=== PATIENT | male | born 1970 | race Caucasian/White ===

== ENCOUNTER 2018-09-27 05:54 | Inpatient (IN) | payer BC ==
[2018-09-24 16:24] VITALS: BMI 35.1
[2018-09-27] VITALS (28 sets, daily range): BP systolic 112–140; BP diastolic 71–90; PULSE 74–103; RESP 14–20; Ht 190.5 cm; Wt 127.2 kg
[~2018-09-27] VITALS: Ht 190.5 cm; Wt 127.2 kg
[2018-09-27] MEDS ORDERED: BUPIVACAINE 0.5%/EPI (SDV) 30 ML INJ ONE (06:49)
[2018-09-27] MEDS ORDERED: THROMBIN (BOVINE) 5,000 UNIT VIAL TP ONE (06:49)
[2018-09-27] MEDS ORDERED: SURGIFOAM POWDER 1 GM KIT ONE (06:50)
[2018-09-27] MEDS ORDERED: POLYMYXIN/BACITRACIN 1L IRRIG ONE (06:54)
[2018-09-27] MEDS ORDERED: CEFAZOLIN 1 GM INJ ONE ×2 (07:00→07:40)
[2018-09-27] MEDS ORDERED: PROPOFOL 200 MG INJ ONE (07:00)
[2018-09-27] MEDS ORDERED: SEVOFLURANE 15 MIN ONE (07:00)
--- NOTE | 2018-09-27 07:34 | HPN ---
Date/Time of Note Date/Time of Note DATE: 09/27/18 TIME: 07:33 Interval H&P Admission Note Pt. seen H&P reviewed: No system changes MARI JONES MD Sep 27, 2018 07:34
--- NOTE | 2018-09-27 07:34 | PREAC ---
Date/Time of Note Date/Time of Note DATE: 09/27/18 TIME: 07:30 Anesthesia Eval and Record Evaluation Time Pre-Procedure Interview DATE: 09/27/18 TIME: 07:30 Age 48 Sex male NPO: 8 hrs Preoperative diagnosis Cervcical Radiculopathy Planned procedure Cervical C5-6 discectomy and fusion. Past Medical History Past Medical History: Includes Cardio: HTN, Dyslipidemia, CAD, PTCA/Stent (X3 stents), Arrythmia (history of ST), CHF Pulm: Sleep Apnea, Home CPAP GI: Obesity Surgery & Anesthesia Issues No known issue Meds Anticoagulation: No Beta Gopi within 24 hr: No Reason Beta Gopi not given: Pt. not on B-Gopi Meds reviewed: Yes Allergies Coded Allergies: No Known Allergy (Unverified , 09/24/18) Allergies Reviewed: Yes Labs/Studies Labs Reviewed: Reviewed by anesthesiologist test: N/A Studies: ECG (NSR, septal infarct), CXR (n/a), 2D Echo (EF 60%old infarct, no ischemnia, mild LVH, no valvulopathy) Pre-procedure Exam Airway: Adequate mouth opening, Adequate thyromental dist Mallampati: Mallampati III Teeth: Normal Lung: Normal Heart: Normal ASA Physical Status ASA physical status: 3 Emergency: None Planned Anesthetic General/MAC: ETT Planned Pain Management Parenteral pain med Pre-operative Attestations Prior to commencing anesthesia and surgery, the patient was re-evaluated, there was verification of: *The patient's identity *The results of appropriate recent lab work and preoperative vital signs *The above evaluation not changing prior to induction *Anesthetic plan, risk benefits, alternative and complications discussed with patient/family; questions answered; patient/family understands, accepts and wishes to proceed. WANDA VU MD Sep 27, 2018 07:34
[2018-09-27] MEDS ORDERED: MIDAZOLAM 1 MG/ML 2 ML INJ ONE (07:40)
[2018-09-27] MEDS ORDERED: PROPOFOL 20 ML ONE (07:40)
[2018-09-27] MEDS ORDERED: ROCURONIUM 50 MG INJ ONE ×2 (07:40→12:59)
[2018-09-27] MEDS ORDERED: ATOR-2 PO (07:47)
[2018-09-27] MEDS ORDERED: CARV12.579 PO (07:48)
[2018-09-27] MEDS ORDERED: ISOS30TA67 PO (07:48)
[2018-09-27] MEDS ORDERED: LISI10TA2 PO (07:49)
[2018-09-27] MEDS ORDERED: CLOP75TA27 PO (07:49)
[2018-09-27] MEDS ORDERED: PHENYLephrine 10 MG INJ ONE (07:52)
[2018-09-27] MEDS ORDERED: EPHEDrine 25 MG/5 ML SYG ONE (07:52)
[2018-09-27] MEDS ORDERED: ONDANSETRON 4 MG INJ ONE ×2 (08:29)
[2018-09-27] MEDS ORDERED: METOCLOPRAMIDE 10 MG INJ ONE (08:29)
[2018-09-27] MEDS ORDERED: DEXAMETHASONE 4 MG/ML 5 ML INJ ONE (08:29)
[2018-09-27] MEDS ORDERED: SUGAMMADEX SODIUM 200 MG/2 ML VIAL IV ONE (11:00)
[2018-09-27] MEDS ORDERED: LABETALOL HCL 20MG INJ ONE (11:02)
--- NOTE | 2018-09-27 11:14 | OPR ---
Date/Time of Note Date/Time of Note DATE: 09/27/18 TIME: 11:11 Operative Report Free Text/Dictation DATE OF OPERATION: 09/27/2018 PREOPERATIVE DIAGNOSES: 1. 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 Morbid Obesity BMI: 35.1 kg/m2 POSTOPERATIVE DIAGNOSES: 1. 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 Morbid Obesity BMI: 35.1 kg/m2 OPERATION PERFORMED: 1. Anterior cervical C5-6 diskectomy. 2. Anterior cervical disc replacement, C5-6 3. Use of Operative microscope. 4. Interpretation of Neuromonitoring SURGEON: Mari Jones MD STOCK MOVER: Francisco Terrazas MD INDICATIONS: Mr. Wilson is a 48-year-old gentleman who presents with a year history of right upper extremity pain and weakness refractory to conservative management associated with extension and rotation as well as axial loading. Preoperative imaging studies demonstrated a right paracentral disk herniation at the C5-6 level cord compression and C6 nerve root compression. After having failed all attempts at conservative management, he understood the risks included, but were not limited to, infection, neurologic injury, blood loss, dural tear, persistence of preoperative symptoms and a potential need for further operative procedures and elected to proceed with surgery. PROCEDURE IN DETAIL: The patient was brought in the operating room. General anesthesia was obtained. Preoperative antibiotics were given. He was carefully positioned supine on the radiolucent table. The arms were padded and tucked at the sides. The neck was sterilely prepped and draped in the usual fashion. A standard left-sided skin incision was made in a prominent anterior skin fold. This was continued down through subcutaneous tissue to the platysma fascia. Full-thickness skin flaps were developed. The platysma was split in line with the direction of its fibers. The dissection proceeded through the deep cervical fascia at the interval between the esophagus and spine. The prevertebral fascia was carefully incised, cleared off at the anterior aspect of the C5-6 disk space. The anterior longitudinal ligament was carefully isolated as was the longus coli bilaterally. A [place] retraction cannula was placed into the C5 vertebral body, and an intraoperative radiograph was obtained to confirm the location of the midline along with the operative level. Once this was confirmed, a 2nd [place] pin was placed in the C6 vertebral body, and the longus colli was mobilized bilaterally using bipolar cautery and an elevator. A deep self- retaining retractor was placed underneath the longus colli bilaterally and then distraction was applied across the interspace. The operative microscope was at this point brought in. The osteophyte projecting over the anterior aspect of the C5-6 disk space was at this point resected with a spinal rongeur, and then the anterior portion of the disk was incised with a #15 blade. The disk was excised in its entirety using a series of pituitary rongeurs and angled curettes back to the posterior longitudinal ligament. The uncovertebral osteophyte was resected along its medial 3rd to provide a platform for the disk replacement and also to allow for foraminal decompression. The posterior osteophytes projecting off the back of the C5 and C6 vertebral bodies were slightly burred down, and then the posterior longitudinal ligament was resected , 1st centrally and then in either direction. A foraminotomy was performed bilaterally until a probe could be ea sily passed along the pathway of the C6 root. Hemostasis was obtained at this point, and then a series of trial sizers were used to select an implant 17 mm wide by 5 mm tall x 15 mm in an anterior-posterior depth. Intraoperative radiographs demonstrated good alignment of the trial, and then the final implant was selected and then inserted into the disk space under technical photographer's in structions using the appropriate instrumentation. Once this was positioned appropriately and extended to the back of the C5 and C6 vertebral bodies, the operative site was washed out extensively with sterile normal saline. There was no significant bleeding. The Memo pins were removed, and the sites were blocked off with bone wax. The platysma fascia was then closed with 3-0 Vicryl suture in a interrupted fashion over a medium Hemovac, followed by 4-0 Monocryl suture in a running subcuticular fashion. Dermabond was placed, followed by a sterile dressing. The patient was extubated and transferred out to the postanesthesia care unit in a soft collar in good condition. There were no complications. Given the patient morbid BMI 32.1 kg/m2 this procedure took an additional 45 minutes for exposure and implant placement. Procedure Date: Sep 27, 2018 Preoperative Diagnosis 1. 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 Morbid Obesity BMI: 35.1 kg/m2 Postoperative Diagnosis 1. 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 Morbid Obesity BMI: 35.1 kg/m2 Operation/Procedure Performed 1. Anterior cervical C5-6 diskectomy. 2. Anterior cervical disc replacement, C5-6 3. Use of Operative microscope. 4. Interpretation of Neuromonitoring Surgeon see signature line [employer] Francisco Harvey MD Anesthesia Type: general Estimated Blood Loss: 10 - 50 ml's Transfusion none Specimen C5-6 disk Grafts/Implants Mobi-C [id number] Complications none Pt Condition Post Procedure: stable Disposition: PACU Procedure Description PROCEDURE IN DETAIL: The patient was brought in the operating room. General anesthesia was obtained. Preoperative antibiotics were given. He was carefully positioned supine on the radiolucent table. The arms were padded and tucked at t he sides. The neck was sterilely prepped and draped in the usual fashion. A standard left-sided skin incision was made in a prominent anterior skin fold. This was continued down through subcutaneous tissue to the platysma fascia. Full-thickness skin flaps were developed. The platysma was split in line with the direction of its fibers. The dissection proceeded through the deep cervical fascia at the interval between the esophagus and spine. The prevertebral fascia was carefully incised, cleared off at the anterior aspect of the C5-6 disk space. The anterior longitudinal ligament was carefully isolated as was the longus coli bilaterally. A Highland retraction cannula was placed into the C5 vertebral body, and an intraoperative radiograph was obtained to confirm the location of the midline along with the operative level. Once this was confirmed, a 2nd [place] pin was placed in the C6 vertebral body, and the longus colli was mobilized bilaterally using bipolar cautery and an elevator. A deep self- retaining retractor was placed underneath the longus colli bilaterally and then distraction was applied across the interspace. The operative microscope was at this point brought in. The osteophyte projecting over the anterior aspect of the C5-6 disk space was at this point resected with a spinal rongeur, and then the anterior portion of the disk was incised with a #15 blade. The disk was excised in its entirety using a series of pituitary rongeurs and angled curettes back to the posterior longitudinal ligament. The uncovertebral osteophyte was resected along its medial 3rd to provide a platform for the disk replacement and also to allow for foraminal decompression. The posterior osteophytes projecting off the back of the C5 and C6 vertebral bodies were slightly burred down, and then the posterior longitudinal ligament was resected , 1st centrally and then in either direction. A foraminotomy was performed bilaterally until a probe could be easily passed along the pathway of the C6 root. Hemostasis was obtained at this point, and then a series of trial sizers were used to select an implant 17 mm wide by 5 mm tall x 15 mm in an anterior-posterior depth. Intraoperative radiographs demonstrated good alignment of the trial, and then the final implant was selected and then inserted into the disk space under technical photographer's instructions using the appropriate instrumentation. Once this was positioned appropriately and extended to the back of the C5 and C6 vertebral bodies, the operative site was washed out extensively with sterile normal saline. There was no significant bleeding. The [place] pins were removed, and the sites were blocked off with bone wax. The platysma fascia was then closed with 3-0 Vicryl suture in a interrupted fashion over a medium Hemovac, followed by 4-0 Monocryl suture in a running subcuticular fashion. Dermabond was placed, followed by a sterile dressing. The patient was extubated and transferred out to the postanesthesia care unit in a soft collar in good condition. There were no complications. Given the patient morbid BMI 32.1 kg/m2 this procedure took an additional 45 minutes for exposure and implant placement. MARI JONES MD Sep 27, 2018 11:14
--- NOTE | 2018-09-27 11:17 | PAC ---
Date/Time of Note Date/Time of Note DATE: 09/27/18 TIME: 11:17 Post-Anesthesia Notes Post-Anesthesia Note Last documented vital signs T: 98.0 Activity: WNL Respiratory function: WNL Cardiovascular function: WNL Mental status: Baseline Pain reasonably controlled: Yes Hydration appropriate: Yes Nausea/Vomiting absent: Yes WANDA VU MD Sep 27, 2018 11:17
[2018-09-27] MEDS ORDERED: NALOXONE (0.4 MG/ML) INJ IV PRN (11:30)
[2018-09-27] MEDS ORDERED: PROCHLORPERAZINE 10 MG TAB PO PRN (11:30)
[2018-09-27] MEDS ORDERED: ONDANSETRON 4 MG INJ IV PRN ×2 (11:30→12:30)
[2018-09-27] MEDS ORDERED: AL HYDROX/MG HYDROX/SIMETH 30 ML CUP PO PRN (11:30)
[2018-09-27] MEDS ORDERED: ACETAMINOPHEN 325 MG TAB PO PRN (11:30)
[2018-09-27] MEDS ORDERED: HYDROCODONE/APAP (5/325) TAB PO PRN ×2 (11:30)
[2018-09-27] MEDS ORDERED: NACL 0.9% 3 ML SYG IV SCH (11:30)
[2018-09-27] MEDS: HYDROmorphONE 0.2 MG/ML PCA IV SCH ×2 (11:47→21:26)
[2018-09-27] MEDS: CEFAZOLIN 1 GM/50 ML (PMX) 50 ML IVPB SCH ×2 (12:00→18:11)
[2018-09-27] MEDS ORDERED: FENTAnyl 50 MCG/ML VIAL ONE (12:10)
[2018-09-27] MEDS ORDERED: HYDROmorphONE 1 MG/5 ML IV SYRINGE IV ONE (12:11)
[2018-09-27] MEDS ORDERED: EPHEDrine SULFATE 50 MG/5 ML SYG IV PRN (12:30)
[2018-09-27] MEDS ORDERED: hydrALAzine 20 MG INJ IV PRN (12:30)
[2018-09-27] MEDS ORDERED: METOCLOPRAMIDE 10 MG INJ IV PRN (12:30)
[2018-09-27] MEDS ORDERED: MEPERIDINE 25 MG INJ IV PRN (12:30)
[2018-09-27] MEDS ORDERED: LABETALOL HCL 20MG INJ IV PRN (12:30)
[2018-09-27] MEDS ORDERED: OXYCODONE/ACETAMINOPHEN (5/325) TAB PO PRN ×2 (12:30)
[2018-09-27] MEDS ORDERED: DIPHENHYDRAMINE 50 MG INJ IV PRN (12:30)
[2018-09-27] MEDS ORDERED: FENTAnyl 50 MCG/ML VIAL IV PRN ×3 (12:30)
[2018-09-27] MEDS ORDERED: HYDROmorphONE 1 MG/5 ML IV SYRINGE IV PRN ×3 (12:30)
[2018-09-27] MEDS ORDERED: HETASTARCH 6% NACL 500 ML ONE (12:59)
[2018-09-27] MEDS: LISINOPRIL 10 MG TAB PO SCH (13:00)
--- NOTE | 2018-09-27 13:08 | CONS ---
DATE OF ADMISSION: 09/27/2018 DATE OF CONSULTATION: 09/27/2018 TYPE OF CONSULTATION: Postoperative medical. Thank you very much for allowing me to evaluate the above patient, a 48-year-old male who just underw ent cervical spine surgery. HISTORICAL EVENTS: As you well know, this patient has had a history of significant right-sided neck pain and right arm radicular symptoms and because of continued pain that did not respond to conservat cristopher therapy, he elected to proceed with surgery. Postoperatively, he is comfortable without cough, w heezing, shortness of breath, nausea, vomiting or abdominal pain. PAST MEDICAL HISTORY: Includes: 1. Known coronary artery disease having had stents placed with last stress study (nuclear in 08/2017 that revealed no ischemia). 2. Hyperlipidemia. 3. Hypertension. 4. History of sleep apnea. ALLERGIES: NONE. SOCIAL HISTORY: Does not smoke. He does drink alcohol. He is a [employer]. FAMILY HISTORY: Pancreatic cancer and skin cancer. MEDICATIONS: Include: 1. Atorvastatin 80 mg per day. 2. Coreg 12.5 b.i.d. 3. Plavix 75 mg per day. 4. Lisinopril 10 mg per day. 5. Isosorbide 30 mg per day. 6. Nitroglycerin p.r.n. 7. Aspirin. PHYSICAL EXAMINATION: GENERAL: Comfortable appearing male in no acute distress. VITAL SIGNS: BP 118/76, pulse 72, respirations were 18. He was afebrile. HEENT: Eyes: Extraocular muscles were full. Nose, mouth and throat are normal. NECK: No thyroid enlargement. No JVD. LUNGS: Clear. HEART: Rhythm regular. No murmur. ABDOMEN: Nontender. Liver and spleen were not palpable. No mass or tenderness were noted. EXTREMITIES: No edema. Calves are nontender. Pulses are 2+. NEUROLOGIC: Revealed no lateralizing motor weakness. IMPRESSION: 1. Stable postoperative cervical spine surgery. 2. History of known coronary artery disease. We will resume statin and aspirin when okay with you. 3. We will evaluate daily for signs and symptoms of thromboembolic disease. 4. Hypertension. We will resume his SUDHAKAR inhibitor and Coreg. We will follow with you. Dictated By: MICHAEL KENDALL/SORAYA Conf#: [id number] DID#: [id number] CC: MARI JONES MD;*[facility]*
[2018-09-27] MEDS: SOD CHLORIDE 0.9% 1,000 ML IV SCH (14:03)
[2018-09-27] MEDS ORDERED: LIDOCAINE 5% PATCH TD PRN ×2 (16:30)
[2018-09-27] MEDS: ACETAMINOPHEN 1000MG/100ML IV 100 ML IVPB SCH ×2 (16:46→22:46)
[2018-09-27] MEDS: DEXAMETHASONE 10 MG/ML 1 ML INJ IV SCH (18:11)
[2018-09-27] MEDS: ISOSORBIDE MONONITRATE(SR)30 MG TAB PO SCH (18:12)
[2018-09-27] MEDS ORDERED: ATORVASTATIN 80 MG TAB PO SCH (21:00)
[2018-09-28] MEDS: CEFAZOLIN 1 GM/50 ML (PMX) 50 ML IVPB SCH ×2 (00:11→05:52)
[2018-09-28 00:43] VITALS: BP 112/63; PULSE 93; RESP 18
[2018-09-28] MEDS: SOD CHLORIDE 0.9% 1,000 ML IV SCH ×2 (01:30→04:18)
[2018-09-28] MEDS: ACETAMINOPHEN 1000MG/100ML IV 100 ML IVPB SCH ×2 (04:18→10:44)
[2018-09-28 07:31] VITALS: BP 129/69; PULSE 82; RESP 19
--- NOTE | 2018-09-28 08:33 | CONS ---
Assessment/Plan Assessment/Plan Assessment/Plan (Daily) 1. Post op cx spine surgery, doing well 2. ASHD, with angina or chf 3. HBP, controlled 4. Labs rev Consultation Date/Type/Reason Admit Date/Time Sep 27, 2018 at 05:54 Initial Consult Date Date/Time of Note DATE: 09/28/18 TIME: 08:32 Detailed Summary Respiratory: No cough, No shortness of breath Cardiovascular: No chest pain, No orthopenea Gastrointestinal: no complaints Genitourinary: no complaints Musculoskeletal: neck pain (mild with sl diff swallowing) Exam/Review of Systems Exam Vitals Vital Signs Date Temp Pulse Resp B/P (MAP) Pulse Ox O2 O2 Flow FiO2 Time Delivery Rate 09/28/18 98.2 82 19 129/69 98 07:31 (89) 09/28/18 Room Air 00:43 09/27/18 4.0 15:30 Intake and Output 09/27/18 09/27/18 09/28/18 1515:00 23:00 07:00 IntakeIntake Total 1300 ml 750 ml 1770 ml OutputOutput Total 375 ml 200 ml 1150 ml BalanceBalance 925 ml 550 ml 620 ml Neck: No jvd Respiratory: clear to auscultation Cardiovascular: regular rate and rhythm Gastrointestinal: soft Extremities: No edema, No tenderness Results Result Diagram: 09/28/18 0427 09/28/18 042 Results 24hrs Laboratory Tests Test 09/28/18 04:27 09/28/18 07:21 Hemoglobin 12.8 L Hematocrit 38.4 L Sodium Level 141 Potassium Level 4.4 Chloride Level 107 Carbon Dioxide Level 27 Anion Gap 7 Blood Urea Nitrogen 13 Creatinine 0.74 Est Glomerular Filtrat Rate mL/min > 60 Glucose Level 165 Calcium Level 9.4 Lab Scanned Report REFERENCE LAB Medications Medication Current Medications Acetaminophen/ Hydrocodone Bitart ([place] (5/325)) 1 tab Q4H PRN PO .PAIN 1-5; Start 09/27/18 at 11:30 Acetaminophen/ Hydrocodone Bitart ([place] (5/325)) 2 tab Q4H PRN PO .PAIN 6-10; Start 09/27/18 at 11:30 Prochlorperazine (Compazine) 10 mg Q4H PRN PO NAUSEA/VOMITING; Start 09/27/18 at 11:30 Ondansetron HCl (Zofran Inj) 4 mg Q6H PRN IV NAUSEA/VOMITING; Start 09/27/18 at 11:30 Al Hydrox/Mg Hydrox/Simethicone (Mag-Al Plus) 15 ml Q4H PRN PO .CONSTIPATION; Start 09/27/18 at 11:30 Docusate Sodium (Colace) 100 mg BID PO ; Start 09/28/18 at 09:00 Acetaminophen (Tylenol Tab) 650 mg Q4H PRN PO TEMP GREATER THAN 101F OR BURNETTE; Start 09/27/18 at 11:30 IV Flush (NS 3 ml) 3 ml PER PROTOCOL IV ; Start 09/27/18 at 11:30 Hydromorphone HCl (Dilaudid SEROLOGY TEACHER) DISCONTINUE DILAUDID SEROLOGY TEACHER ON ... Q4PCA IV Last administered on 09/27/18at 21:26; Admin Dose 6 MG; Start 09/27/18 at 11:30; Stop 09/28/18 at 09:30 Naloxone HCl (Narcan) 0.2 mg Q2M PRN IV RR 8 BREATHS/MIN OR LESS; Start 09/27/18 at 11:30 Sodium Chloride 1,000 ml @ 80 mls/hr [id number] IV Last administered on 09/28/18at 04:18; Admin Dose 80 MLS/HR; Start 09/27/18 at 13:00 Atorvastatin Calcium (Lipitor) 80 mg QHS PO Last administered on 09/27/18at 21:27; Admin Dose 80 MG; Start 09/27/18 at 21:00 Carvedilol (Coreg) 12.5 mg BID PO Last administered on 09/27/18at 21:27; Admin Dose 12.5 MG; Start 09/27/18 at 21:00 Lisinopril (Zestril) 10 mg DAILY PO ; Start 09/27/18 at 13:00 Isosorbide Mononitrate (Imdur) 30 mg DAILY PO Last administered on 09/27/18at 18:12; Admin Dose 30 MG; Start 09/27/18 at 18:00 Dexamethasone (Decadron) 10 mg BID IV Last administered on 09/27/18at 18:11; Admin Dose 10 MG; Start 09/27/18 at 18:00; Stop 09/28/18 at 09:01 Acetaminophen 100 ml @ 0 mls/hr Q6H IVPB Last administered on 09/28/18 04:18; Admin Dose 100 MLS/HR; Start 09/27/18 at 16:30; Stop 09/28/18 at 16:29 Lidocaine (Lidoderm) 1 patch DAILY PRN TD PAIN Last administered on 09/27/18 18:12; Admin Dose 1 PATCH; Start 09/27/18 at 16:30 MICHAEL MELENDEZ MD Sep 28, 2018 08:33
[2018-09-28] MEDS: LISINOPRIL 10 MG TAB PO SCH (08:39)
[2018-09-28] MEDS: DEXAMETHASONE 10 MG/ML 1 ML INJ IV SCH (08:39)
[2018-09-28] MEDS: ISOSORBIDE MONONITRATE(SR)30 MG TAB PO SCH (08:40)
[2018-09-28] MEDS ORDERED: ISOSORBIDE MONONITRATE(SR)30 MG TAB PO SCH (09:00)
[2018-09-28] MEDS ORDERED: DOCUSATE SODIUM 100 MG CAP PO SCH (09:00)
--- NOTE | 2018-09-28 12:54 | PDOCDIS ---
Discharge Instructions CONDITION [id number] Patient Condition: [id number] Good HOME CARE INSTRUCTIONS: [id number] Diet Instructions: [id number] Regular ACTIVITY: [id number] Activity Restrictions: [id number] Avoid heavy lifting [id number] Bathing Restrictions: [id number] Shower FOLLOW UP/APPOINTMENTS Follow-up Plan Follow-up with Dr. Jones in 2 weeks MARI JONES MD Sep 28, 2018 12:54
[2018-09-28 14:05] VITALS: BP 168/96; PULSE 90; RESP 18
== END 2018-09-28 15:20 | disposition home or self-care (01) | DRG 518 ==
LOC: REC 05:54 → MS1 13:20
PROVIDERS: ADMIT Orthopaedic Surgery; ATTEND Orthopaedic Surgery
PROC: 4A11X4G Monitoring of Peripheral Nervous Electrical Activity, Intraoperative, External Approach (ICD-10-PCS; 2018-09-27)
PROC: 0RR30JZ Replacement of Cervical Vertebral Disc with Synthetic Substitute, Open Approach (ICD-10-PCS; principal; 2018-09-27 07:30)
DX: M50.122 Cervical disc disorder at C5-C6 level with radiculopathy (principal); I25.10 Atherosclerotic heart disease of native coronary artery without angina pectoris; E78.5 Hyperlipidemia, unspecified; I10 Essential (primary) hypertension; G47.30 Sleep apnea, unspecified; E66.01 Morbid (severe) obesity due to excess calories; Z95.5 Presence of coronary angioplasty implant and graft; Z68.35 Body mass index [BMI] 35.0-35.9, adult
CPT/HCPCS: 72052; 80048; 85014; 85018; 86900; 86901; 88304; 97116; 97161; 97530; J0131; J0690; J1100; J1170; J2250; J2405; J2765; J3010; J7030